=== PATIENT | female | born 1990 | race Caucasian/White ===

== ENCOUNTER → 2018-06-09 | Outpatient (CLI) | payer OTHER | LOC: M WHC 07:03 | DX: N92.1 Excessive and frequent menstruation with irregular cycle (principal) | CPT/HCPCS: 76830 ==

== ENCOUNTER 2018-09-25 13:03 | Emergency (ER) | payer OTHER ==
[~2018-09-25] VITALS: Ht 167.6 cm; Wt 61.4 kg
[2018-09-25 13:03] VITALS: BP 121/61
[2018-09-25] MEDS ORDERED: IBUP-1022 PO (13:09)
[2018-09-25] MEDS ORDERED: ACET500T15 PO (13:09)
[2018-09-25] MEDS ORDERED: MOBI4TAB PO (13:41)
[2018-09-25] MEDS ORDERED: PRED20TA PO (13:41)
[2018-09-25] MEDS ORDERED: ZANA4TAB PO (13:41)
[2018-09-25] MEDS ORDERED: KETOROLAC 60 MG/2 ML VIAL (J1885) IM ONE (13:45)
== END 2018-09-25 14:20 | disposition home or self-care (01) ==
LOC: M ED 13:03
DX: M54.5 Low back pain (principal); M51.37 Other intervertebral disc degeneration, lumbosacral region; Z87.891 Personal history of nicotine dependence; Z79.1 Long term (current) use of non-steroidal anti-inflammatories (NSAID); Z79.899 Other long term (current) drug therapy
CPT/HCPCS: 96372; 99282; J1885

== ENCOUNTER → 2021-05-28 | Outpatient (CLI) | payer OTHER ==
[~2021-05-28] MED LIST: ACET500T15 PO; IBUP-1022 PO; MOBI4TAB PO; PRED20TA PO; ZANA4TAB PO
[2021-05-28 16:55] LABS: BASO % 0.8 % (0.0-1.0); EOS # 0.1 10^3/uL (0.0-0.5); EOS % 1.4 % (0.0-3.0); HEMATOCRIT 39.8 % (36.0-47.0); HEMOGLOBIN 13.1 g/dl (12.0-15.5); LYMPH # 1.8 10^3/uL (1.5-5.0); LYMPH % 35.7 % (24.0-44.0); MEAN CORPUSCULAR HEMOGLOBIN 29.4 pg (27.0-33.0); MEAN CORPUSCULAR HGB CONC 32.9 g/dl (32.0-36.5); MEAN CORPUSCULAR VOLUME 89.4 fl (80.0-96.0); MONO # 0.4 10^3/uL (0.0-0.8); MONO % 8.4 % (2.0-8.0); NEUTROPHILS # 2.7 10^3/uL (1.5-8.5); NEUTROPHILS % 53.5 % (36.0-66.0); PLATELET COUNT, AUTOMATED 283 10^3/uL (150-450); RED BLOOD COUNT 4.45 10^6/uL (4.00-5.40); WHITE BLOOD COUNT 5.1 10^3/uL (4.0-10.0)
[2021-05-28 17:41] LABS: ALBUMIN 4.1 GM/DL (3.2-5.2); ALT/SGPT 20 U/L (12-78); BILIRUBIN,TOTAL 0.4 MG/DL (0.2-1.0); BLOOD UREA NITROGEN 9 MG/DL (7-18); CARBON DIOXIDE LEVEL 26 MEQ/L (21-32); CHLORIDE LEVEL 105 MEQ/L (98-107); GLOMERULAR FILTRATION RATE > 60.0 (>60); GLUCOSE, FASTING 90 MG/DL (70-100); POTASSIUM SERUM 4.2 MEQ/L (3.5-5.1); RHEUMATOID FACTOR QUANT < 10.0 IU/ML (<15.0); SODIUM LEVEL 138 MEQ/L (136-145); TOTAL PROTEIN 7.5 GM/DL (6.4-8.2)
[2021-05-28 18:01] LABS: ERYTHROCYTE SEDIMENTATION RATE 47 mm/hr (0-20)
[2021-05-28 18:09] LABS: HEMOGLOBIN A1c 5.4 %
[2021-05-28 18:34] LABS: VITAMIN B12 LEVEL 509 PG/ML
[2021-05-28 18:35] LABS: FOLATE 12.1 NG/ML
[2021-06-04 18:09] LABS: ANTINUCLEAR ANTIBODIES DIRECT Negative (Negative); VITAMIN B1 LEVEL WHOLE BLOOD 163.6 nmol/L (66.5-200.0); VITAMIN B6,PYRIDOXAL PHOSPHATE 8.6 ug/L (2.0-32.8); VITAMIN E(ALPHA TOCOPHEROL) 7.2 mg/L (5.9-19.4); VITAMIN E(GAMMA TOCOPHEROL) 2.4 mg/L (0.7-4.9)
== END ==
LOC: M WUC 10:39
PROVIDERS: ATTEND Physician Assistant Medical
DX: M54.5 Low back pain (principal); R42 Dizziness and giddiness; G62.9 Polyneuropathy, unspecified

== ENCOUNTER → 2024-01-18 | Outpatient (CLI) | payer OTHER | LOC: M SOG 15:01 | PROVIDERS: ATTEND Physician Assistant | DX: S82.102D Unspecified fracture of upper end of left tibia, subsequent encounter for closed fracture with routine healing (principal); M25.572 Pain in left ankle and joints of left foot ==

== ENCOUNTER → 2024-02-07 | Outpatient (CLI) | payer OTHER | LOC: M SOG 07:53 | PROVIDERS: ATTEND Physician Assistant | DX: S82.102D Unspecified fracture of upper end of left tibia, subsequent encounter for closed fracture with routine healing (principal); M25.572 Pain in left ankle and joints of left foot ==

== ENCOUNTER → 2024-03-27 | Outpatient (CLI) | payer OTHER | LOC: M SOG 07:58 | PROVIDERS: ATTEND Physician Assistant | DX: S82.102A Unspecified fracture of upper end of left tibia, initial encounter for closed fracture (principal); M25.572 Pain in left ankle and joints of left foot; Y93.9 Activity, unspecified; Y92.9 Unspecified place or not applicable ==

== ENCOUNTER → 2024-04-10 | Outpatient (CLI) | payer OTHER | LOC: M PLAIMG 06:45 | PROVIDERS: ATTEND Physician Assistant | DX: S82.102D Unspecified fracture of upper end of left tibia, subsequent encounter for closed fracture with routine healing (principal); Y93.9 Activity, unspecified; Y92.9 Unspecified place or not applicable ==